=== PATIENT | male | born 1970 | race Two or more races ===

== ENCOUNTER 2021-06-26 16:32 | Emergency (ER) | payer OTHER ==
[~2021-06-26] VITALS: Ht 177.8 cm; Wt 102.1 kg
[2021-06-26] MEDS ORDERED: ATORVASTATIN CA10 MG (17:31)
[2021-06-26] MEDS ORDERED: LOSARTAN-HCTZ1 EACH (17:32)
[2021-06-26] MEDS ORDERED: FENOFIBRATE 48 MG (17:32)
== END 2021-06-26 23:11 | disposition home or self-care (01) ==
LOC: ER 16:32
DX: G51.0 Bell's palsy (principal); I10 Essential (primary) hypertension